=== PATIENT | female | born 1945 | race Caucasian/White ===

== ENCOUNTER 2016-10-21 10:12 | Emergency (ER) | payer OTHER, MEDICAID ==
[~2016-10-21] VITALS: Ht 165.1 cm; Wt 75.5 kg
[~2016-10-21 10:12] MED LIST: ASPI81TA3 PO; ATOR10TA65 PO; BENA40TA41 PO; CIPR500T4 PO; CLON-379 PO; HYD25 PO; HYDR-3498 PO; LEVO25TA53 PO; MECL-77 PO; METF1000 PO
[2016-10-21 10:28] VITALS: Ht 165.1 cm; Wt 75.5 kg
[2016-10-21] MEDS ORDERED: KETOROLAC 30 MG INJ IM STA (11:16)
--- NOTE | 2016-10-21 12:13 | RADRPT ---
PROCEDURE: US Lower extremity Venous. CLINICAL INDICATION: Right leg edema , pain TECHNIQUE: Multiple sonographic images of the right lower extremity deep venous system was obtaine d utilizing grayscale, color-flow, compressive sonography and doppler imaging with augmentation. Th e images were reviewed on a PACS workstation. COMPARISON: None. FINDINGS: There is normal compressibility and flow within the right common femoral, femoral, posterior tibial, peroneal and popliteal veins. RPTAT: AA IMPRESSION: No sonographic evidence for deep venous thrombosis. .Mayito Duron MD, MD Date Time Electronically viewed and signed by .Mayito Duron MD, on 10/21/2016 12:12 .S/
--- NOTE | 2016-10-21 12:21 | RADRPT ---
PROCEDURE: XR Tibia and Fibula 2 Views. CLINICAL INDICATION: Right lower leg pain. TECHNIQUE: AP and lateral views of the right tibia and fibula were obtained. COMPARISON: No prior studies are available for comparison. FINDINGS: The osseous structures are intact. No destructive bony lesions are identified. Interosseous spaces are normal. The soft tissues are unremarkable. Small plantar calcaneal heel spur is seen. IMPRESSION: Unremarkable right tibia and fibula. Plantar calcaneal heel spur. If further characterization is needed CT or MRI could be helpful. If there is high clinical suspicion for traumatic injury, further evaluation with CT should be consi dered. RPTAT: AA .Edgar Motley MD, MD Date Time Electronically viewed and signed by .Edgar Motley MD, on 10/21/2016 12:20 .P/
[2016-10-21] MEDS ORDERED: TRAM50TA2 PO (12:51)
[2016-10-21] MEDS ORDERED: IBUP400T22 PO (12:51)
[2016-10-21 13:00] VITALS: BP 156/79; PULSE 77; RESP 18; TEMP 98.4
--- NOTE | 2016-10-21 13:10 | ERD ---
ER Documentation Chief Complaint Date/Time DATE: 10/21/16 TIME: 13:02 Chief Complaint Complains of right leg x 1 week HPI This is a 71-year-old female with a past medical history of diabetes and hypertension that presents to the ER with right leg pain. She states that leg pain started a week ago, she went to her primary care doctor and was given gabapentin for her pain, PCP told her it may be sciatica. Patient points to the middle of her lower leg and states that the pain is severe, does not let her sleep last night. Patient states that the pain does not radiate anywhere. She has not had any fevers or chills. She denies any trauma. Pain is throbbing in quality. Patient tried taking gabapentin vkad-aqi-sydhtew vitamins , however has not worked. ROS 12 point review of systems was done, all negative except per HPI. Medications Home Meds Active Scripts Tramadol HCl (Tramadol HCl) 50 Mg Tablet, 50 MG PO Q4 Y for PAIN, #20 TAB Prov:JOSE MANUEL NATARAJAN 10/21/16 Ibuprofen* (Motrin*) 400 Mg Tab, 400 MG PO Q6, #30 TAB Prov:JOSE MANUEL NATARAJAN 10/21/16 Hydrocodone Bit-Acetaminophen* ([place]*) 5-325 Mg Tab, 1 TAB PO Q6 Y for PAIN, # 10 TAB Prov:PIOTR RUSSO MD 01/08/15 Reported Medications Ciprofloxacin Hcl* (Ciprofloxacin Hcl*) 500 Mg Tablet, 500 MG PO BID, TAB PER PT STARTED ON 01-06-15 01/08/15 Meclizine Hcl* (Meclizine Hcl*) 25 Mg Tablet, 25 MG PO Q6 Y for DIZZINESS, TAB 01/08/15 Atorvastatin Calcium (Atorvastatin Calcium) 10 Mg Tablet, 10 MG PO HS, TAB 01/08/15 Clonidine Hcl* (Clonidine Hcl*) 0.1 Mg Tab, 0.1 MG PO BID, TAB 01/08/15 Benazepril Hcl* (Benazepril Hcl*) 40 Mg Tablet, 40 MG PO DAILY, TAB 01/08/15 Levothyroxine Sodium* (Levothyroxine Sodium*) 25 Mcg Tablet, 25 MCG PO AC BREAKFAST, TAB 01/08/15 Metformin Hcl* (Metformin Hcl*) 1,000 Mg Tablet, 1000 MG PO BID, TAB 01/08/15 Hydrochlorothiazide* (Hydrochlorothiazide*) 25 Mg Tab, 25 MG PO DAILY, TAB 01/08/15 Aspirin* (Aspirin* Chew) 81 Mg Tab.chew, 81 MG PO DAILY, TAB.CHEW 01/08/15 Allergies Allergies: Coded Allergies: No Known Allergies (Verified Allergy, Mild, 06/01/09) PMhx/Soc History of Surgery: No Anesthesia Reaction: No Hx Neurological Disorder: No Hx Respiratory Disorders: No Hx Cardiac Disorders: Yes (HTN, CHOLESTEROL) Hx Psychiatric Problems: No Hx Miscellaneous Medical Probl: No Hx Alcohol Use: No Hx Substance Use: No Hx Tobacco Use: No Physical Exam Vitals Vital Signs Date Time Temp Pulse Resp B/P Pulse Ox O2 Delivery O2 Flow Rate FiO2 10/21/16 10:28 98.4 94 20 177/85 96 Physical Exam GENERAL: The patient is well developed and appropriate for usual state of health , in no apparent distress. HEENT: Atraumatic. Conjunctivae are pink. Pupils equal, round, and reactive to light. Extraocular muscles are grossly intact. Bilateral tympanic membranes are clear with no evidence of erythema, effusion or dulling of the light reflex. The oropharynx is clear with no erythema or exudates. NECK: C-spine is soft and supple. There is no cervical lymphadenopathy. CHEST: Clear to auscultation bilaterally. There are no rales, wheezes or rhonchi. HEART: Regular rate and rhythm. No murmurs, clicks, rubs or gallops. ABDOMEN: Soft, nontender and nondistended. Good bowel sounds. No rebound or guarding. No gross peritonitis. No gross organomegaly or masses. No Garcia sign or McBurney point tenderness. BACK: No midline or flank tenderness. EXTREMITIES: Right hip: Patient does not have any tenderness to palpation to the right hip she has normal abduction and abduction of the hip, no groin pain. She was not tender to palpation along the right femur. Patient had full and nonpainful range of motion of the right knee there is no tenderness over the right knee. Patient is tender to palpation to the mid tibia. Patient has full and nonpainful range of motion of the right ankle she is not tender to palpation over the lateral or medial malleolus. Normal plantar and dorsiflexion. +2 pulses. Sensations are intact to L4, L5, S1. There is no areas of ecchymosis, erythema, edema. No calf swelling. NEURO: Alert and oriented. Cranial nerves II through XII are intact. Motor strength in all 4 extremities with 5/5 strength. Sensation grossly intact. Normal speech and gait. SKIN: The skin is warm and dry. Results 24 hrs Current Medications Medications (Trade) Dose Ordered Sig/Erna Route PRN Reason Start Time Stop Time Status Last Admin Dose Admin Ketorolac Tromethamine (Toradol) 30 mg ONCE STAT IM 10/21/16 11:16 10/21/16 11:19 DC 10/21/16 11:28 Procedures/MDM : Differential diagnosis includes but is not limited to: Fracture, dislocation, osteomyelitis, acute compartment syndrome, rhabdo, myositis, DVT. This is a 71- year-old female that presents to the ER with tenderness to the mid tibia that is been going on for the last week. There is no evidence of fracture dislocation on her x-ray and patient did not have any hip and knee or ankle pain. Patient did not have any calf pain, suspicion for DVT is low, additionally ultrasound was negative. Patient is afebrile and well-appearing, she is able to ambulate in the ER without any problem suspicion for infectious etiology such as osteomyelitis or deep space infection is low. Patient has not had any history of fevers and does not have any erythema, edema or warmth to the area. Patient will be sent home with ibuprofen and with tramadol. She is to follow-up with her primary care doctor within 1-2 days or return to ER sooner if symptoms worsen. My medical decision making shared with the patient she understands and agrees with plan. Patient's blood pressure was elevated, however patient does not have hypertensive emergency or urgency at this time. Patient does have a past medical history of hypertension, I urged patient to follow-up with her primary care doctor as soon as possible regarding her blood pressure. Departure Diagnosis: Primary Impression: Pain of left leg Condition: Stable Patient Instructions: Possible Causes of Low Back or Leg Pain Referrals: ZEYAD CAMPBELL (PCP) Additional Instructions: Llame al doctor MABRETT y toya nika PERICO PARA DENTRO DE 1-2 MCDONALD.Dgale a la secretaria que nosotros le instruimos hacer esta perico.Avise o llame si reyna condicin se empeora antes de la perico. Regresa aqui si peor o no mejor. JOSE MANUEL NATARAJAN Oct 21, 2016 13:10
== END 2016-10-21 13:00 | disposition home or self-care (01) ==
LOC: FTE 10:12
DX: M79.604 Pain in right leg (principal); E11.9 Type 2 diabetes mellitus without complications; I10 Essential (primary) hypertension; Z79.82 Long term (current) use of aspirin; Z79.84 Long term (current) use of oral hypoglycemic drugs
CPT/HCPCS: 73590; 93971; 96372; 99284; J1885